=== PATIENT | female | born 1935 | race Caucasian/White ===

== ENCOUNTER 2025-02-25 19:38 | Inpatient (IN) | payer OTHER ==
[~2025-02-25] VITALS: Ht 162.6 cm; Wt 49.9 kg
[2025-02-25] MEDS ORDERED: PIPERACI/TAZO 3.375GM/D5W 50ML PB IV ONE (19:58)
[2025-02-25 20:12] LABS: ABG BASE EXCESS 8.3 mmol/L (-2.0-3.0); ABG OXYGEN SATURATION 90.4 % (94.0-98.0); ABG PCO2 39.6 mmHg (32.0-45.0); ABG PH 7.522 (7.350-7.450); ABG PO2 55.7 mmHg (83.0-108.0); ABG TOTAL HEMOGLOBIN 15.7 G/dL (12.0-16.0); FLOW, BLOOD GAS 4.00 L/min (0.00-30.00); SITE, ABG LEFT RADIAL
[2025-02-25] MEDS: IV NS 0.9% 500 ML BAG IV ONE (20:14)
[2025-02-25] MEDS: IV NS 0.9% 1,000 ML BAG IV ONE (20:14)
[2025-02-25] MEDS: PIPERACILLIN /TAZOBACTAM 3.375 G in IV D5W 50 ML IV ONE (20:15)
[2025-02-25] MEDS ORDERED: ACETAMINOPHEN 650 MG/SUPP.RECT RC ONE (20:17)
[2025-02-25] MEDS: ACETAMINOPHEN 650 MG/SUPP.RECT RC ONE (20:18)
[2025-02-25 20:20] LABS: PLATELET COUNT (AUTO) 440 K/uL (150-450); RED BLOOD CELL COUNT(AUTO) 5.33 MIL/uL (4.0-5.2); RED CELL DISTRIBUTION WIDTH 13.9 % (11.5-15.0); WHITE BLOOD COUNT (AUTO) 15.0 K/uL (4.3-11.0)
[2025-02-25 20:26] LABS: CALCIUM, SERUM 12.2 mg/dL (8.5-10.1); CREATININE 2.5 mg/dL (0.6-1.3); SODIUM SERUM 149 mmol/L (136-145); UREA NITROGEN, BLOOD 47 mg/dL (7-18)
[2025-02-25 20:31] LABS: ASPARTATE AMINOTRANSFERASE 26 U/L (15-37); TOTAL PROTEIN, SERUM 8.3 g/dL (6.4-8.2)
[2025-02-25 20:32] LABS: ALCOHOL, BLOOD < 3 mg/dL (0-10)
[2025-02-25 20:38] LABS: INR 1.13 (0.91-1.10)
[2025-02-25 20:44] LABS: SERUM AMMONIA < 10 umol/L (11-32)
[2025-02-25] MEDS ORDERED: DOSING PER PHARMACY-ZOSYN IV 1 EA EA XX PRN (21:30)
[2025-02-25] MEDS ORDERED: IV D5 LR 1,000 ML IV PRN (21:30)
[2025-02-25] MEDS ORDERED: ACETAMINOPHEN 650 MG/SUPP.RECT RC PRN (21:30)
[2025-02-25] MEDS ORDERED: ONDANSETRON HCL/PF 4 MG/2 ML VIAL IVP PRN (21:30)
[2025-02-25] MEDS: PANTOPRAZOLE 40 MG VIAL IV SCH (21:30)
[2025-02-25] MEDS ORDERED: Z GUARD REMEDY 4 OZ OINT TP PRN (21:30)
[2025-02-25 21:49] LABS: LACTIC ACID 7.5 mmol/L (0.4-2.0)
[2025-02-25] MEDS ORDERED: NOREPINEPHRINE 8MG/250ML RTU 250 ML IV ONE (21:57)
[2025-02-25] MEDS ORDERED: DEXTROSE 50%-WATER 50 ML DISP.SYRIN IV PRN (22:00)
[2025-02-25] MEDS ORDERED: INSULIN REGULAR, HUMAN 100 UNIT/ML 3 ML VIAL SQ PRN (22:00)
[2025-02-25] MEDS: NOREPINEPHRINE 8 MG in IV NS 0.9% 242 ML IV PRN (22:12)
[2025-02-25 22:15] VITALS: O2SAT 90
[2025-02-25 22:16] VITALS: BP 87/71; TEMP 98.2; O2SAT 88
[2025-02-25] MEDS ORDERED: SODIUM BICARBONATE SYR 50 MEQ/50 ML DISP.SYRIN IV ONE (23:00)
[2025-02-25] MEDS ORDERED: EPINEPHRINE (1:10,000) SYRINGE 1 MG/10 ML DISP.SYRIN IVP ONE (23:00)
[2025-02-25] MEDS ORDERED: CALCIUM CHLORIDE 1,000 MG/10 ML DISP.SYRIN IV ONE (23:00)
[2025-02-25 23:43] LABS: ABG BASE EXCESS 10.1 mmol/L (-2.0-3.0); ABG OXYGEN SATURATION 88.1 % (94.0-98.0); ABG PCO2 38.3 mmHg (32.0-45.0); ABG PH 7.554 (7.350-7.450); ABG PO2 50.4 mmHg (83.0-108.0); ABG TOTAL HEMOGLOBIN 16.1 G/dL (12.0-16.0); FLOW, BLOOD GAS 40.00 L/min (0.00-30.00); FRACTIONATED INSPIRED OXYGEN 100.0 %; SITE, ABG RIGHT BRACHIAL
[2025-02-26] MEDS: BLOOD SUGAR DIAGNOSTIC 1 EACH STRIP IN SCH
[2025-02-26] MEDS ORDERED: PROPOFOL 0 ML ONE (00:12)
[2025-02-26] MEDS ORDERED: PANTOPRAZOLE 40 MG VIAL ONE (00:12)
[2025-02-26] MEDS ORDERED: PANTOPRAZOLE 80 MG in IV NS 0.9% 500 ML IV PRN (00:30)
[2025-02-26] MEDS: ETOMIDATE 2 MG/ML VIAL IV ONE (00:30)
[2025-02-26] MEDS: ROCURONIUM BROMIDE 50 MG/5 ML IV ONE (00:30)
[2025-02-26] MEDS: PANTOPRAZOLE 40 MG VIAL IV ONE (00:30)
[2025-02-26] MEDS ORDERED: ZOSYN IVPB 2.25 G in IV D5W 50ml IV ONE (02:00)
[2025-02-26] MEDS ORDERED: ETOMIDATE 2 MG/ML VIAL IV ONE (06:43)
[2025-02-26] MEDS ORDERED: ROCURONIUM BROMIDE 50 MG/5 ML IV ONE (06:43)
[2025-02-26] MEDS ORDERED: HEPARIN SODIUM, PORCINE 5000 UNITS/1 ML VIAL SQ SCH (09:00)
== END 2025-02-26 06:44 | DRG 871 ==
LOC: ER 19:42 → ICU 22:36
PROVIDERS: ADMIT Nurse Practitioner Acute Care; ATTEND Nurse Practitioner Acute Care
PROC: 0D9670Z Drainage of Stomach with Drainage Device, Via Natural or Artificial Opening (ICD-10-PCS; 2025-02-25)
PROC: 5A12012 Performance of Cardiac Output, Single, Manual (ICD-10-PCS; principal; 2025-02-26)
PROC: 0BH17EZ Insertion of Endotracheal Airway into Trachea, Via Natural or Artificial Opening (ICD-10-PCS; 2025-02-26)
DX: A41.9 Sepsis, unspecified organism (principal); G92.8 Other toxic encephalopathy; I21.A1 Myocardial infarction type 2; J15.9 Unspecified bacterial pneumonia; J96.01 Acute respiratory failure with hypoxia; R65.21 Severe sepsis with septic shock; N17.0 Acute kidney failure with tubular necrosis; E87.20 Acidosis, unspecified; R64 Cachexia; G30.9 Alzheimer's disease, unspecified; N18.9 Chronic kidney disease, unspecified; K40.30 Unilateral inguinal hernia, with obstruction, without gangrene, not specified as recurrent; Z68.1 Body mass index [BMI] 19.9 or less, adult; E44.0 Moderate protein-calorie malnutrition; Z91.81 History of falling; E78.5 Hyperlipidemia, unspecified; F02.80 Dementia in other diseases classified elsewhere, unspecified severity, without behavioral disturbance, psychotic disturbance, mood disturbance, and anxiety; E83.52 Hypercalcemia; E86.0 Dehydration; R73.9 Hyperglycemia, unspecified; K31.89 Other diseases of stomach and duodenum
CPT/HCPCS: 36415; 36600; 70450-TC; 71045-TC; 80048-TC; 80076-TC; 82140-TC; 82803-TC; 82962-TC; 83605-TC; 84439-TC; 84443-TC; 84484-TC; 85025-TC; 85730-TC; 87040-TC; 87081-TC; A4223; G0378; G0480; J0169; J1815; J2470; J2543; J3490; J7030; J7040; J7060